=== PATIENT | female | born 1985 | race Caucasian/White ===

== ENCOUNTER 2016-12-06 17:48 | Emergency (ER) | payer MEDICAID ==
[~2016-12-06] VITALS: Ht 160 cm; Wt 44.5 kg
[~2016-12-06 17:48] MED LIST: CEPH-443 PO; FERR27TA PO; ONDA4TAB35 PO; PREN1TAB49 PO
[2016-12-06 17:51] VITALS: Ht 160 cm; Wt 44.5 kg
[2016-12-06] MEDS ORDERED: TETRACAINE 0.5% 4 ML OPH LEFT EYE ONE (18:30)
[2016-12-06] MEDS ORDERED: FLUORESCEIN STRIP LEFT EYE ONE (18:30)
--- NOTE | 2016-12-06 19:22 | ERD ---
ER Documentation Chief Complaint Date/Time DATE: 12/06/16 TIME: 19:16 Chief Complaint left eye pain from being hit with an object HPI This 31-year-old female presents to emergency department today with left eye injury. Patient reports she was poked in the eye today by a plastic toy that her small daughter was holding. Injury happened approximately 2 hours ago. Patient denies change in vision or discharge, reports pain with blinking, denies photosensitivity. Patient does not wear glasses. Headache, or dizziness. ROS All systems reviewed and are negative except as per history of present illness. Medications Home Meds Active Scripts Ciprofloxacin Opht* (Ciloxan*) 0.3%-3.5 Opht Oint, 1 APPLIC LEFT EYE QID for 7 Days, EA Prov:ALONSO,MELODY 12/06/16 Ondansetron Hcl* (Zofran* ODT) 4 mg -ODT Tab.disper, 4 MG PO Q6 Y for NAUSEA AND /OR VOMITING, #20 TAB Prov:DANIELA CRUZ PA-C 07/31/15 Cephalexin* (Keflex*) 500 Mg Capsule, 500 MG PO BID for 5 Days, CAP Prov:DANIELA CRUZ PA-C 07/31/15 Reported Medications Vits W-Ca,Fe,Fa(<1MG) () 1 Tab Tablet, PO DAILY 12/05/11 Ferrous Sulfate (Iron) 1 Tab Tablet, PO TID 12/05/11 Allergies Allergies: Coded Allergies: No Known Allergy (Unverified , 12/05/11) PMhx/Soc Medical and Surgical Hx: pt denies Medical Hx, pt denies Surgical Hx Hx Alcohol Use: No Hx Substance Use: No Hx Tobacco Use: No Smoking Status: Never smoker Physical Exam Vitals Vital Signs Date Time Temp Pulse Resp B/P Pulse Ox O2 Delivery O2 Flow Rate FiO2 12/06/16 17:51 98.5 68 18 103/62 100 Vitals stable, triage notes reviewed Physical Exam Const: Well-appearing no acute distress Head: Atraumatic Eye Exam: Visual Acuity: Left eye 20/30, right eye 20/25, both eyes 20/20. Uncorrected Visual White: Intact in all four quadrants bilaterally Lac ducts/glands: No swelling Lids w/ evertion: Normal, no foreign body Conj/[place]: Corneal abrasion at 2100 on iris Anterior Chamber: Clear Tonopen readings: Retina exam: No obvious abnormality ENT: Normal External Ears, Nose and Mouth. Neck: Full range of motion..~ No meningismus. Resp: Respirations even and unlabored, no respiratory distress Cardio: Regular rate and rhythm, no murmurs Abd: Skin: Back: Ext: Neur: Awake and alert Psych: Normal Mood and Affect Results 24 hrs Current Medications Medications (Trade) Dose Ordered Sig/Jesse Route PRN Reason Start Time Stop Time Status Last Admin Dose Admin Tetracaine HCl (Tetracaine 0.5% Steri-Unit Colleen) 1 drop ONCE ONCE LEFT EYE 12/06/16 18:30 12/06/16 18:31 DC Fluorescein Sodium (Hmruq-A-Ndqlt) 1 strip ONCE ONCE LEFT EYE 12/06/16 18:30 12/06/16 18:31 DC Procedures/MDM This 31-year-old female presents to emergency department with left eye injury. Injury occurred approximately 2 hours ago. Patient states she was poked in the left eye by a plastic toy that her small daughter was holding. Patient denies any change in vision, tearing, or photosensitivity. Patient denies any mucousy or purulent discharge. Patient reports a scratchy sensation with blinking. Differential diagnosis includes but not limited to foreign body in eye, corneal abrasion, conjunctivitis. Visual acuity documents slight vision change in left eye when compared to right eye. Fluorescein staining shows corneal abrasion at 2100. Patient will be prescribed Ciloxan 1 drop to left eye 4 times daily 7 days. Tylenol or Motrin [id number] analgesic as directed for pain. Return to emergency department for worsening of symptoms.Change in vision, Follow-up with ophthalmology tomorrow. I feel the patient is stable for discharge at this time. I have discussed results, examination findings, the treatment plan with the patient and family present prior to discharge. Indications for emergent reevaluation, side effects of medication were also discussed. All questions were answered. Patient verbalizes understanding and agrees with plan of care. Departure Diagnosis: Primary Impression: Conjunctival abrasion Encounter type: initial encounter Laterality: left Qualified Code: S05.02XA - Conjunctival abrasion, left, initial encounter Condition: Good Patient Instructions: Corneal Abrasion Referrals: [facility] Additional Instructions: Thank you for for coming to [facility] for your care today. Please ask your nurse or provider if you have questions about your care today and do not leave until all your questions have been answered. Please use any medications given as directed and follow-up with your doctor (or the doctor you were referred to) in the next 2-3 days. If you do not have a primary care doctor you may follow up at the [facility] (listed below). You may also use motrin and tylenol as needed for fever and/or pain unless instructed otherwise by your provider or nurse. Indications for more urgent follow-up have been discussed, but you may return to the Emergency Department at ANY time for any worrisome or worsening symptoms. If you have abdominal pain, please know that no test or exam you received is perfect and you should follow up within 8 hours for continued pain. If you had any imaging studies today, such as an X-Ray or CT Scan, these studies will be reviewed later by a radiologist. You will be called if there are important findings that were not identified today, so make sure the contact information you provided at registration is correct. If you received any narcotic pain control medicine today, such as Vicodin, Morphine or Dilaudid, your coordination and judgment may be affected for a number of hours. Please do not drive or operate heavy machinery, and you may want someone to assist you at home. If you were given a prescription for narcotic medication, be aware that it is very addictive- use sparingly and only if necessary. DIANA GUPTA Dec 06, 2016 19:22
[2016-12-06] MEDS ORDERED: CPR3OO3.5 LEFT EYE (19:23)
== END 2016-12-06 19:45 | disposition home or self-care (01) ==
LOC: FTE 17:48
DX: S05.02XA Injury of conjunctiva and corneal abrasion without foreign body, left eye, initial encounter (principal); W22.8XXA Striking against or struck by other objects, initial encounter; Y92.9 Unspecified place or not applicable
CPT/HCPCS: Z7610 ×2; 99283